=== PATIENT | male | born 1950 | race Two or more races ===

== ENCOUNTER 2023-09-21 21:55 | Inpatient (IN) | payer OTHER ==
[~2023-09-21] VITALS: Ht 167.6 cm; Wt 67.4 kg
[2023-09-21] MEDS: ALBUTEROL SULFATE 2.5 MG/ 0.5 ML NEBU NEB ONE (22:01)
[2023-09-21] MEDS ORDERED: ALBUTEROL SULFATE 2.5 MG/ 0.5 ML NEBU ONE (22:03)
[2023-09-21] MEDS ORDERED: FUROSEMIDE 40 MG/4 ML VIAL ONE (22:09)
[2023-09-21] MEDS: FUROSEMIDE 40 MG/4 ML VIAL IV ONE (22:26)
[2023-09-21] MEDS ORDERED: ISOS60TA72 PO (22:26)
[2023-09-21] MEDS ORDERED: ATOR40TA PO (22:26)
[2023-09-21] MEDS ORDERED: HYDR-4077 PO (22:26)
[2023-09-21] MEDS ORDERED: ASPI81TA31 PO (22:26)
[2023-09-21] MEDS ORDERED: CARV6.252 PO (22:26)
[2023-09-21] MEDS ORDERED: FERR325T28 PO (22:26)
[2023-09-21] MEDS ORDERED: AMLO-212 PO (22:26)
[2023-09-21] MEDS ORDERED: EMPA10TA PO (22:26)
[2023-09-21 22:28] LABS: BASOPHILS # (AUTO) 0.1 K/UL (0.0-0.2); BASOPHILS % (AUTO) 0.4 % (0.0-2.0); EOSINOPHILS # (AUTO) 0.1 K/uL (0.0-0.7); EOSINOPHILS % (AUTO) 0.5 % (0.0-7.0); HEMATOCRIT 29.3 % (36.7-47.1); HEMOGLOBIN 9.8 g/dL (12.5-16.3); LYMPHOCYTES # (AUTO) 2.2 K/uL (0.8-4.8); LYMPHOCYTES % (AUTO) 11.6 % (20.5-51.5); MEAN CORPUSCULAR HEMOGLOBIN 30.6 uug (23.8-33.4); MEAN CORPUSCULAR HGB CONC 34 g/dL (32.5-36.3); MONOCYTES # (AUTO) 1.3 K/uL (0.1-1.30); MONOCYTES % (AUTO) 6.7 % (0.0-11.0); NEUTROPHILS # (AUTO) 15.2 K/uL (1.8-8.9); NEUTROPHILS % (AUTO) 80.8 % (38.5-71.5); PLATELET COUNT (AUTO) 269 K/uL (152-348); RED BLOOD CELL COUNT(AUTO) 3.22 MIL/uL (4.06-5.63); RED CELL DISTRIBUTION WIDTH 14.7 % (12.1-16.2); WHITE BLOOD COUNT (AUTO) 18.8 K/uL (3.6-10.2)
[2023-09-21 22:29] LABS: DIFFERENTIAL COMMENT 1
[2023-09-21] MEDS ORDERED: ONDANSETRON 4 MG/2 ML VIAL ONE (22:29)
[2023-09-21] MEDS: ONDANSETRON 4 MG/2 ML VIAL IV ONE (22:34)
[2023-09-21 22:40] LABS: *BILIRUBIN,URIN NEGATIVE (NEGATIVE); *BLOOD, URINE NEGATIVE (NEGATIVE); *CLARITY,URINE CLEAR (CLEAR); *COLOR,URINE YELLOW (YELLOW); *KETONES,URINE NEGATIVE (NEGATIVE); *PROTEIN,URINE 2+ (NEGATIVE); *UROBILINOGEN,URINE 0.2 E.U./dl (NORMAL); LEUKOCYTE ESTERASE ,URINE NEGATIVE (NEGATIVE); NITRITE, URINE NEGATIVE (NEGATIVE); PH,URINE 5.5 (5.0-8.0)
[2023-09-21 22:43] LABS: UGLUCOSE 2+ (NEGATIVE)
[2023-09-21 22:53] LABS: CALCIUM 8.7 mg/dL (8.5-10.1); CARBON DIOXIDE 22 mmol/L (21-32); CHLORIDE 104 mmol/L (98-107); CREATININE 2.1 mg/dL (0.6-1.3); GLUCOSE 220 mg/dL (74-106); POTASSIUM 5.2 mmol/L (3.5-5.1); SODIUM SERUM 137 mmol/L (136-145); UREA NITROGEN, BLOOD 49 mg/dL (7-18)
[2023-09-21 22:56] LABS: ETHANOL < 3 MG/DL (0-10)
[2023-09-21 22:58] LABS: ALANINE AMINOTRANSFERASE 81 U/L (16-63); ALBUMIN 3.5 g/dL (3.4-5.0); ALKALINE PHOSPHATASE 124 U/L (50-136); ASPARTATE AMINOTRANSFERASE 43 U/L (15-37); NT-PRO BNP 18955 pg/mL (0-125); TOTAL PROTEIN, SERUM 7.3 g/dL (6.4-8.2)
[2023-09-22] MEDS ORDERED: ONDANSETRON 4 MG/2 ML VIAL IV PRN (04:45)
[2023-09-22] MEDS ORDERED: MAGNESIUM HYDROXIDE 30 ML LIQUID UDC PO PRN (04:45)
[2023-09-22] MEDS ORDERED: ACETAMINOPHEN 325 MG TABLET PO PRN (04:45)
[2023-09-22] MEDS ORDERED: REMEDY ESSENTIAL ZINC PASTE 113 GM TP PRN (04:45)
[2023-09-22 05:55] LABS: ABG BASE EXCESS -3.5 mmol/L (-2.0-2.0); ABG HCO3 21.1 mmol/L (22.0-26.0); ABG PCO2 36.2 mmHg (35.0-48.0); ABG PH 7.383 (7.340-7.440); ABG PO2 107.3 mmHg (75.0-100.0); ABG SITE RIGHT RADIAL; AaDO2 97.9 mmHg; COHb 1.1 % (0.0-3.9); MetHb 0.3 % (0.0-1.5); O2Hb 96.7 % (94.0-97.0)
[2023-09-22] MEDS ORDERED: hydrALAZINE HCL 50 MG TABLET ONE (06:05)
[2023-09-22] MEDS ORDERED: CEFEPIME HCL 1 G VIAL ONE (06:05)
[2023-09-22] MEDS: hydrALAZINE HCL 50 MG TABLET PO SCH (06:16)
[2023-09-22] MEDS: CEFEPIME HCL 1 G in IV DEXTROSE 5% 50 ML IV SCH (06:16)
[2023-09-22 07:16] LABS: BASOPHILS % (AUTO) 0.5 % (0.0-2.0); EOSINOPHILS % (AUTO) 0.1 % (0.0-7.0); HEMATOCRIT 26.2 % (36.7-47.1); HEMOGLOBIN 9.2 g/dL (12.5-16.3); LYMPHOCYTES # (AUTO) 1.1 K/uL (0.8-4.8); LYMPHOCYTES % (AUTO) 11.5 % (20.5-51.5); MEAN CORPUSCULAR HEMOGLOBIN 31.5 uug (23.8-33.4); MEAN CORPUSCULAR HGB CONC 35 g/dL (32.5-36.3); MEAN CORPUSCULAR VOLUME 89.9 fL (73.0-96.2); MONOCYTES % (AUTO) 10.3 % (0.0-11.0); NEUTROPHILS # (AUTO) 7.4 K/uL (1.8-8.9); NEUTROPHILS % (AUTO) 77.6 % (38.5-71.5); PLATELET COUNT (AUTO) 232 K/uL (152-348); RED BLOOD CELL COUNT(AUTO) 2.91 MIL/uL (4.06-5.63); RED CELL DISTRIBUTION WIDTH 14.7 % (12.1-16.2); WHITE BLOOD COUNT (AUTO) 9.5 K/uL (3.6-10.2)
[2023-09-22 07:46] LABS: DIFFERENTIAL COMMENT 1
[2023-09-22 07:50] LABS: ALANINE AMINOTRANSFERASE 81 U/L (16-63); ALBUMIN 3.1 g/dL (3.4-5.0); ALKALINE PHOSPHATASE 98 U/L (50-136); ASPARTATE AMINOTRANSFERASE 38 U/L (15-37); BILIRUBIN,TOTAL 0.9 mg/dL (0.2-1.0); CALCIUM 8.8 mg/dL (8.5-10.1); CARBON DIOXIDE 25 mmol/L (21-32); CHLORIDE 105 mmol/L (98-107); CHOLESTEROL 82 mg/dL (<200); GLUCOSE 107 mg/dL (74-106); HDL CHOLESTEROL 48 mg/dL (40-60); MAGNESIUM 2.5 mg/dL (1.8-2.4); PHOSPHOROUS 4.7 mg/dL (2.5-4.9); POTASSIUM 4.8 mmol/L (3.5-5.1); SODIUM SERUM 137 mmol/L (136-145); TOTAL PROTEIN, SERUM 6.5 g/dL (6.4-8.2); TRIGLYCERIDES 29 MG/DL (30-150); UREA NITROGEN, BLOOD 53 mg/dL (7-18)
[2023-09-22 08:03] LABS: THYROID STIMULATING HORMONE 1.115 mIU/mL (0.358-3.740)
[2023-09-22] MEDS ORDERED: ASPIRIN 81 MG TAB.CHEW ONE (09:38)
[2023-09-22] MEDS ORDERED: PANTOPRAZOLE SODIUM 40 MG VIAL ONE (09:38)
[2023-09-22] MEDS ORDERED: FUROSEMIDE 40 MG/4 ML VIAL ONE (09:38)
[2023-09-22] MEDS ORDERED: CARVEDILOL 6.25 MG TABLET ONE (09:39)
[2023-09-22] MEDS ORDERED: HEPARIN SODIUM,PORCINE 5,000 UNITS/ML VIAL ONE (09:40)
[2023-09-22] MEDS: PANTOPRAZOLE SODIUM 40 MG VIAL IV SCH (09:53)
[2023-09-22] MEDS: ASPIRIN 81 MG TAB.CHEW PO SCH (09:53)
[2023-09-22] MEDS: FUROSEMIDE 40 MG/4 ML VIAL IV SCH (09:53)
[2023-09-22] MEDS: CARVEDILOL 6.25 MG TABLET PO SCH (09:54)
[2023-09-22] MEDS: AMLODIPINE 5 MG TABLET PO SCH (09:55)
[2023-09-22] MEDS: HEPARIN SODIUM,PORCINE 5,000 UNITS/ML VIAL SQ SCH (09:56)
[2023-09-22 10:09] VITALS: BP 136/45; TEMP 98.4; O2SAT 97
[2023-09-22] MEDS: ISOSORBIDE MONONITRATE 60 MG TAB.SR.24H PO SCH (11:44)
[2023-09-22 12:00] VITALS: O2SAT 98
[2023-09-22 16:00] VITALS: BP 124/45; TEMP 98.6; O2SAT 98
[2023-09-22 19:15] VITALS: BP 129/47; TEMP 98.2; O2SAT 98
[2023-09-22] MEDS: ATORVASTATIN 40 MG TABLET PO SCH (20:32)
[2023-09-23] VITALS (7 sets, daily range): BP systolic 122–138; BP diastolic 40–47; TEMP 97.8–98.7; O2SAT 95–99
[2023-09-23 01:15] LABS: *BILIRUBIN,URIN NEGATIVE (NEGATIVE); *BLOOD, URINE NEGATIVE (NEGATIVE); *CLARITY,URINE CLEAR (CLEAR); *COLOR,URINE YELLOW (YELLOW); *KETONES,URINE NEGATIVE (NEGATIVE); *PROTEIN,URINE NEGATIVE (NEGATIVE); *UROBILINOGEN,URINE 0.2 E.U./dl (NORMAL); LEUKOCYTE ESTERASE ,URINE NEGATIVE (NEGATIVE); NITRITE, URINE NEGATIVE (NEGATIVE)
[2023-09-23 01:18] LABS: UGLUCOSE 2+ (NEGATIVE)
[2023-09-23 01:40] LABS: *CREATININE,URINE 41.1 mg/dL (30-125); *URINE TOTAL PROTEIN RANDOM 13.1 mg/dL (<150/24HR)
[2023-09-23] MEDS: CEFEPIME HCL 1 G in IV DEXTROSE 5% 50 ML IV SCH (05:24)
[2023-09-23] MEDS ORDERED: ALBUTEROL SULFATE 2.5 MG/ 0.5 ML NEBU NEB PRN (06:15)
[2023-09-23 08:16] LABS: BASOPHILS # (AUTO) 0.1 K/UL (0.0-0.2); BASOPHILS % (AUTO) 0.8 % (0.0-2.0); EOSINOPHILS # (AUTO) 0.1 K/uL (0.0-0.7); EOSINOPHILS % (AUTO) 1.2 % (0.0-7.0); HEMATOCRIT 26.8 % (36.7-47.1); HEMOGLOBIN 9.4 g/dL (12.5-16.3); LYMPHOCYTES # (AUTO) 1.4 K/uL (0.8-4.8); LYMPHOCYTES % (AUTO) 16.5 % (20.5-51.5); MEAN CORPUSCULAR HEMOGLOBIN 31.3 uug (23.8-33.4); MEAN CORPUSCULAR HGB CONC 35 g/dL (32.5-36.3); MEAN CORPUSCULAR VOLUME 89.7 fL (73.0-96.2); MONOCYTES % (AUTO) 11.4 % (0.0-11.0); NEUTROPHILS # (AUTO) 6.1 K/uL (1.8-8.9); NEUTROPHILS % (AUTO) 70.1 % (38.5-71.5); PLATELET COUNT (AUTO) 228 K/uL (152-348); RED BLOOD CELL COUNT(AUTO) 2.99 MIL/uL (4.06-5.63); RED CELL DISTRIBUTION WIDTH 14.4 % (12.1-16.2); WHITE BLOOD COUNT (AUTO) 8.7 K/uL (3.6-10.2)
[2023-09-23 08:31] LABS: DIFFERENTIAL COMMENT 1
[2023-09-23 08:37] LABS: ALANINE AMINOTRANSFERASE 42 U/L (16-63); ALBUMIN 2.8 g/dL (3.4-5.0); ALKALINE PHOSPHATASE 87 U/L (50-136); ASPARTATE AMINOTRANSFERASE 14 U/L (15-37); BILIRUBIN,TOTAL 0.7 mg/dL (0.2-1.0); CALCIUM 8.4 mg/dL (8.5-10.1); CARBON DIOXIDE 25 mmol/L (21-32); CHLORIDE 103 mmol/L (98-107); CREATINE KINASE, TOTAL 30 U/L (39-308); CREATININE 2.2 mg/dL (0.6-1.3); GLUCOSE 104 mg/dL (74-106); MAGNESIUM 2.3 mg/dL (1.8-2.4); PHOSPHOROUS 3.8 mg/dL (2.5-4.9); POTASSIUM 4.8 mmol/L (3.5-5.1); SODIUM SERUM 136 mmol/L (136-145); TOTAL PROTEIN, SERUM 6.5 g/dL (6.4-8.2); UREA NITROGEN, BLOOD 53 mg/dL (7-18)
[2023-09-23 08:54] LABS: IRON, SERUM 20 ug/dL (50-175)
[2023-09-23 09:02] LABS: FERRITIN 380 ng/mL (26-388)
[2023-09-24] VITALS (8 sets, daily range): BP systolic 126–145; BP diastolic 43–63; TEMP 98–99.2; O2SAT 94–98
[2023-09-24] MEDS: PANTOPRAZOLE SODIUM 40 MG TABLET.DR PO SCH (06:07)
[2023-09-24 08:11] LABS: PTH, INTACT 50 pg/mL (15-65)
[2023-09-24 14:06] LABS: ALBUMIN 2.9 g/dL (2.9-4.4); ALPHA-1-GLOBULIN 0.3 g/dL (0.0-0.4); ALPHA-2-GLOBULIN 0.9 g/dL (0.4-1.0); BETA GLOBULIN 0.7 g/dL (0.7-1.3); GAMMA GLOBULIN 1.1 g/dL (0.4-1.8); M-SPIKE Not Observed g/dL (Not Observed)
[2023-09-25] VITALS: BP 131/55; TEMP 98.2; O2SAT 95
[2023-09-25 04:00] VITALS: BP 129/52; TEMP 98.2; O2SAT 97
[2023-09-25 06:58] LABS: BASOPHILS # (AUTO) 0.1 K/UL (0.0-0.2); BASOPHILS % (AUTO) 1.1 % (0.0-2.0); EOSINOPHILS # (AUTO) 0.4 K/uL (0.0-0.7); EOSINOPHILS % (AUTO) 4.4 % (0.0-7.0); HEMATOCRIT 29.2 % (36.7-47.1); HEMOGLOBIN 10.1 g/dL (12.5-16.3); LYMPHOCYTES # (AUTO) 1.4 K/uL (0.8-4.8); LYMPHOCYTES % (AUTO) 17.4 % (20.5-51.5); MEAN CORPUSCULAR HEMOGLOBIN 30.2 uug (23.8-33.4); MEAN CORPUSCULAR HGB CONC 35 g/dL (32.5-36.3); MEAN CORPUSCULAR VOLUME 86.9 fL (73.0-96.2); MONOCYTES # (AUTO) 0.9 K/uL (0.1-1.30); MONOCYTES % (AUTO) 11.2 % (0.0-11.0); NEUTROPHILS # (AUTO) 5.4 K/uL (1.8-8.9); NEUTROPHILS % (AUTO) 65.9 % (38.5-71.5); PLATELET COUNT (AUTO) 315 K/uL (152-348); RED BLOOD CELL COUNT(AUTO) 3.36 MIL/uL (4.06-5.63); RED CELL DISTRIBUTION WIDTH 14.1 % (12.1-16.2); WHITE BLOOD COUNT (AUTO) 8.1 K/uL (3.6-10.2)
[2023-09-25] MEDS ORDERED: LIDOCAINE HCL 1% 20 ML VIAL IJ PRN (07:15)
[2023-09-25 07:18] LABS: DIFFERENTIAL COMMENT 1
[2023-09-25 07:29] LABS: ALANINE AMINOTRANSFERASE 31 U/L (16-63); ALBUMIN 2.7 g/dL (3.4-5.0); ALKALINE PHOSPHATASE 83 U/L (50-136); ASPARTATE AMINOTRANSFERASE 15 U/L (15-37); BILIRUBIN,TOTAL 0.4 mg/dL (0.2-1.0); CARBON DIOXIDE 27 mmol/L (21-32); CHLORIDE 102 mmol/L (98-107); CREATININE 2.1 mg/dL (0.6-1.3); GLUCOSE 170 mg/dL (74-106); MAGNESIUM 2.3 mg/dL (1.8-2.4); PHOSPHOROUS 3.9 mg/dL (2.5-4.9); POTASSIUM 4.7 mmol/L (3.5-5.1); SODIUM SERUM 135 mmol/L (136-145); TOTAL PROTEIN, SERUM 6.5 g/dL (6.4-8.2); UREA NITROGEN, BLOOD 64 mg/dL (7-18)
[2023-09-25 08:00] VITALS: BP 138/46; TEMP 98.6; O2SAT 98
[2023-09-25 08:06] LABS: CALCIUM 8.4 mg/dL (8.5-10.1)
[2023-09-25] MEDS: FUROSEMIDE 40 MG TABLET PO SCH (09:55)
[2023-09-25 11:39] VITALS: BP 145/54; TEMP 97.9; O2SAT 95
[2023-09-25] MEDS ORDERED: FURO40TA5 PO (11:53)
[2023-09-25 14:39] VITALS: BP 138/46
== END 2023-09-25 16:00 | disposition home or self-care (01) | DRG 194 ==
LOC: ER 21:57 → TELE3 09-22 03:41
PROVIDERS: ADMIT Internal Medicine; ATTEND Internal Medicine
PROC: 5A09357 Assistance with Respiratory Ventilation, Less than 24 Consecutive Hours, Continuous Positive Airway Pressure (ICD-10-PCS; principal; 2023-09-22)
PROC: 0HBLXZX Excision of Left Lower Leg Skin, External Approach, Diagnostic (ICD-10-PCS; 2023-09-25)
DX: I13.0 Hypertensive heart and chronic kidney disease with heart failure and stage 1 through stage 4 chronic kidney disease, or unspecified chronic kidney disease (principal); J96.01 Acute respiratory failure with hypoxia; N17.0 Acute kidney failure with tubular necrosis; D63.1 Anemia in chronic kidney disease; I27.20 Pulmonary hypertension, unspecified; D72.829 Elevated white blood cell count, unspecified; E11.22 Type 2 diabetes mellitus with diabetic chronic kidney disease; E87.5 Hyperkalemia; I50.33 Acute on chronic diastolic (congestive) heart failure; I25.10 Atherosclerotic heart disease of native coronary artery without angina pectoris; N18.9 Chronic kidney disease, unspecified; Z87.891 Personal history of nicotine dependence; Z79.84 Long term (current) use of oral hypoglycemic drugs; L98.8 Other specified disorders of the skin and subcutaneous tissue; E66.3 Overweight; R22.42 Localized swelling, mass and lump, left lower limb
CPT/HCPCS: 36415; 36600; 71045; 76770; 83550; 83605; 83735; 83970; 84100; 84155; 84165; 84300; 84443; 84484; 85025; 93005; 93307; A4663; A6209; C9113; G0378; G0480; J0692; J1644; J1940; J2405; J3490